=== PATIENT | female | born 1965 | race American Indian/Alaskan Native ===

== ENCOUNTER 2016-08-03 17:54 | Emergency (ER) | payer SELFPAY ==
[2016-08-03 18:40] LABS: Basophils % (Auto) 0.3 % (0.0-1.8); Eosinophils % (Auto) 0.7 % (0.0-4.3); Hematocrit 35.8 % (30.3-42.9); Hemoglobin 11.7 gm/dl (10.1-14.3); Mean Corpuscular HGB Conc 33 % (30-34); Mean Corpuscular Hemoglobin 27 pg (28-32); Mean Corpuscular Volume 83 fl (79-97); Platelet Count 228 K/mm3 (140-440); Red Blood Count 4.33 M/mm3 (3.65-5.03); Red Cell Distribution Width 14.2 % (13.2-15.2); White Blood Count 5.8 K/mm3 (4.5-11.0)
[2016-08-03 18:51] LABS: Alanine Aminotransferase 22 units/L (7-56); Albumin 3.3 g/dL (3.9-5); Albumin/Globulin Ratio 1.1 %; Alkaline Phosphatase 115 units/L (35-129); BUN/Creatinine Ratio 16.25; Blood Urea Nitrogen 13 mg/dL (7-17); Calcium 8.6 mg/dL (8.4-10.2); Carbon Dioxide 27 mmol/L (22-30); Glucose 453 mg/dL (65-100); Lipase 10 units/L (13-60); Total Protein 6.3 g/dL (6.3-8.2)
[2016-08-03 19:02] LABS: Anion Gap 16 mmol/L; Chloride 102.4 mmol/L (98-107); Potassium 4.1 mmol/L (3.6-5.0); Sodium 141 mmol/L (137-145)
[2016-08-03 20:14] LABS: Bilirubin,Urine NEG (Negative); Blood,Urine NEG (Negative); Ketones,Urine NEG (Negative); Leukocyte Esterase,Urine NEG (Negative); Nitrite,Urine NEG (Negative); Protein,Urine <15 mg/dL mg/dL (Negative); RBC,Urine < 1.0 /HPF (0.0-6.0); Urobilinogen,Urine < 2.0 mg/dL (<2.0)
[2016-08-03] MEDS ORDERED: NACL 0.9% 1000 ML 1,000 ML IV ONE (23:07)
[2016-08-03] MEDS ORDERED: NORMODYNE IV ONE (23:08)
--- NOTE | 2016-08-03 23:12 | Emergency Department Report ---
ED Dizziness HPI - General Chief Complaint: High BP Stated Complaint: LUPUS/HYPERTENSION/DIABETES Time Seen by Provider: 08/03/16 23:07 Source: patient Mode of arrival: Ambulatory Limitations: No Limitations - History of Present Illness MD Complaint: dizziness, lightheadedness, near syncope -: Gradual Timing: gradual onset Description: lightheadedness, near-syncope History of Same: No History of Trauma: No Improves With: nothing Worsens With: nothing Associated Symptoms: denies: ataxia, chest pain, confusion, cough, diaphoresis, fever/chills, loss of appetite, malaise, seizure, shortness of breath - Related Data Previous Rx's Medication Instructions Recorded Last Taken Type FLUoxetine HCL [PROzac] 40 mg PO BID #90 capsule 08/04/16 Unknown Rx Insulin Lispro [Humalog] 50 unit SQ AC #5 vial 08/04/16 Unknown Rx Lisinopril [Zestril TAB] 20 mg PO QDAY #90 tablet 08/04/16 Unknown Rx amLODIPine [Norvasc] 10 mg PO DAILY #90 tab 08/04/16 Unknown Rx predniSONE [Deltasone] 10 mg PO QDAY #90 tab 08/04/16 Unknown Rx Allergies Allergy/AdvReac Type Severity Reaction Status Date / Time No Known Allergies Allergy Verified 08/03/16 18:19 ED Review of Systems ROS: Stated complaint: LUPUS/HYPERTENSION/DIABETES Other details as noted in HPI Comment: All other systems reviewed and negative ED Past Medical Hx - Past Medical History Previous Medical History?: Yes Hx Hypertension: Yes Hx Diabetes: Yes Additional medical history: lupus, pancreatitis, hernias - Surgical History Past Surgical History?: Yes Hx Cholecystectomy: Yes Additional Surgical History: left knee - Social History Smoking Status: Never Smoker Substance Use Type: None - Medications Home Medications: Home Medications Medication Instructions Recorded Confirmed Last Taken Type FLUoxetine HCL [PROzac] 40 mg PO BID #90 capsule 08/04/16 Unknown Rx Insulin Lispro [Humalog] 50 unit SQ AC #5 vial 08/04/16 Unknown Rx Lisinopril [Zestril TAB] 20 mg PO QDAY #90 tablet 08/04/16 Unknown Rx amLODIPine [Norvasc] 10 mg PO DAILY #90 tab 08/04/16 Unknown Rx predniSONE [Deltasone] 10 mg PO QDAY #90 tab 08/04/16 Unknown Rx ED Physical Exam - General Limitations: No Limitations General appearance: alert, in no apparent distress - Head Head exam: Present: atraumatic, normocephalic - Eye Eye exam: Present: normal appearance - ENT ENT exam: Present: mucous membranes moist - Neck Neck exam: Present: normal inspection - Respiratory Respiratory exam: Present: normal lung sounds bilaterally. Absent: respiratory distress - Cardiovascular Cardiovascular Exam: Present: regular rate, normal rhythm. Absent: systolic murmur, diastolic murmur, rubs, gallop - GI/Abdominal GI/Abdominal exam: Present: soft, normal bowel sounds - Extremities Exam Extremities exam: Present: normal inspection - Back Exam Back exam: Present: normal inspection - Neurological Exam Neurological exam: Present: alert, oriented X3 - Psychiatric Psychiatric exam: Present: normal affect, normal mood - Skin Skin exam: Present: warm, dry, intact, normal color. Absent: rash ED Course Vital Signs 08/03/16 08/03/16 08/03/16 18:15 23:12 23:34 Temperature 98.5 F Pulse Rate 79 55 L Respiratory 16 15 14 Rate Blood Pressure 189/115 177/89 O2 Sat by Pulse 100 99 100 Oximetry 08/03/16 08/03/16 08/03/16 23:39 23:48 23:51 Temperature Pulse Rate 65 65 Respiratory 16 Rate Blood Pressure 177/89 O2 Sat by Pulse Oximetry ED Medical Decision Making - Lab Data Result diagrams: 08/03/16 18:21 08/03/16 18:21 - Medical Decision Making Patient been doing well in the ER, lab workup and CXR negative, improved after fluids and solumedrol and insulin here in the ER, will refill her DM /HTN meds and also her prednisone, will give follow up with new PMD after she lost her insurance after being terminated Critical care attestation.: If time is entered above; I have spent that time in minutes in the direct care of this critically ill patient, excluding procedure time. ED Disposition Clinical Impression: Lupus Disposition: DC-01 TO HOME OR SELFCARE Is pt being admited?: No Does the pt Need Aspirin: No Condition: Good Instructions: Diabetes Mellitus Type 1 in Adults (ED), Chronic Hypertension (ED ) Prescriptions: amLODIPine [Norvasc] 10 mg PO DAILY #90 tab FLUoxetine HCL [PROzac] 40 mg PO BID #90 capsule Insulin Lispro [Humalog] 50 unit SQ AC #5 vial Lisinopril [Zestril TAB] 20 mg PO QDAY #90 tablet predniSONE [Deltasone] 10 mg PO QDAY #90 tab Time of Disposition: 00:38
[2016-08-03] MEDS ORDERED: ZOFRAN IV ONE (23:17)
[2016-08-03] MEDS ORDERED: DILAUDID IV ONE (23:17)
[2016-08-03] MEDS ORDERED: APRESOLINE ONE (23:47)
[2016-08-03] MEDS ORDERED: APRESOLINE IV ONE (23:49)
[2016-08-04] MEDS ORDERED: BENADRYL IV ONE (01:44)
[2016-08-04 03:59] VITALS: BP 169/74
--- NOTE | 2016-08-04 08:23 | XRay Report ---
CHEST ONE VIEW INDICATION: Chest pain. COMPARISON: 03/24/2007. FINDINGS: Portable, single, frontal chest radiograph demonstrates clear lungs and slight exaggerated cardiomediastinal silhouette, given the inspiration. No pleural effusions or CHF. EKG leads and few other extrinsic artifacts. Mild bony degenerative changes. CONCLUSION: No acute disease in the chest. Thank you for the opportunity to participate in this patient's care.
== END 2016-08-04 02:00 | disposition home or self-care (01) ==
LOC: ED 17:54
DX: M32.9 Systemic lupus erythematosus, unspecified (principal); I10 Essential (primary) hypertension; E11.9 Type 2 diabetes mellitus without complications; Z79.4 Long term (current) use of insulin
CPT/HCPCS: 36415; 71010; 80053; 81001; 82962; 83690; 85025; 96361; 96374; 96375; 99284; J0360; J1170; J1200; J2405; J2930; J7030; J1815

== ENCOUNTER 2017-10-25 11:25 | Emergency (ER) | payer OTHER ==
[2017-10-25 12:13] VITALS: BP 145/95
[2017-10-25 13:02] LABS: HCG Qualitative,Urine Negative (Negative)
[2017-10-25 13:08] LABS: Bacteria,Urine 1+ /HPF (Negative); Bilirubin,Urine NEG (Negative); Blood,Urine SM (Negative); Color,Urine Straw (Yellow); Protein,Urine <15 mg/dL mg/dL (Negative); Urobilinogen,Urine < 2.0 mg/dL (<2.0)
[2017-10-25 13:09] LABS: WBC,Urine > 182.0 /HPF (0.0-6.0)
[2017-10-25] MEDS ORDERED: MACROBID PO ONE (17:28)
[2017-10-25] MEDS ORDERED: DELTASONE PO ONE (17:44)
--- NOTE | 2017-10-25 18:03 | Emergency Department Report ---
ED General Adult HPI - General Chief complaint: Extremity Problem,Nontraumatic Stated complaint: LUPUS Time Seen by Provider: 10/25/17 16:56 Source: patient Mode of arrival: Ambulatory Limitations: No Limitations - History of Present Illness Initial comments: 52-year-old female with a past medical history of diabetes, hypertension, depression, pancreatitis, and lupus with complaints of generalized body aches and a progressively worsening since discontinuing her lupus medication 2 weeks ago. Patient has been out of her prednisone 10 mg daily dose due to lack of insurance. She also hasn't had her Prozac for longer than that. He complains of some mild neck discomfort and vaginal itching. Patient denies fever, nausea , vomiting, or abdominal pain. She has been evaluated to follow up because she lost her job and therefore lost her insurance. She is requesting a refill in her medication. She is able to take her insulin because it is available at [facility] without a prescription. Patient works on her feet all day and states that she is having difficulty tolerating the activity due to progressively worsening pain. Severity scale (0 -10): 6 - Related Data Previous Rx's Medication Instructions Recorded Last Taken Type FLUoxetine HCL [PROzac] 40 mg PO BID #90 capsule 08/04/16 Unknown Rx Insulin Lispro [Humalog] 50 unit SQ AC #5 vial 08/04/16 Unknown Rx Lisinopril [Zestril TAB] 20 mg PO QDAY #90 tablet 08/04/16 Unknown Rx amLODIPine [Norvasc] 10 mg PO DAILY #90 tab 08/04/16 Unknown Rx predniSONE [Deltasone] 10 mg PO QDAY #90 tab 08/04/16 Unknown Rx FLUoxetine HCL [Prozac] 20 mg PO QAM #30 capsule 10/25/17 Unknown Rx Fluconazole [Diflucan TAB] 150 mg PO ONCE #1 tablet 10/25/17 Unknown Rx Nitrofurantoin Monohyd/M-Cryst 100 mg PO BID #14 capsule 10/25/17 Unknown Rx [Macrobid 100 mg Capsule] Prednisone [predniSONE 10 mg 10 mg PO .TAPER #1 tab.ds.pk 10/25/17 Unknown Rx (6-Day Pack, 21 Tabs)] traMADol [Ultram 50 MG tab] 50 mg PO Q6HR PRN #20 tablet 10/25/17 Unknown Rx Allergies Allergy/AdvReac Type Severity Reaction Status Date / Time No Known Allergies Allergy Verified 08/03/16 18:19 ED Review of Systems ROS: Stated complaint: LUPUS Other details as noted in HPI Comment: All other systems reviewed and negative ED Past Medical Hx - Past Medical History Hx Hypertension: Yes Hx Diabetes: Yes Hx Psychiatric Treatment: Yes (depression, anxiety) Additional medical history: lupus, pancreatitis, hernias - Surgical History Hx Cholecystectomy: Yes Additional Surgical History: left knee - Social History Smoking Status: Never Smoker - Medications Home Medications: Home Medications Medication Instructions Recorded Confirmed Last Taken Type FLUoxetine HCL [PROzac] 40 mg PO BID #90 capsule 08/04/16 Unknown Rx Insulin Lispro [Humalog] 50 unit SQ AC #5 vial 08/04/16 Unknown Rx Lisinopril [Zestril TAB] 20 mg PO QDAY #90 tablet 08/04/16 Unknown Rx amLODIPine [Norvasc] 10 mg PO DAILY #90 tab 08/04/16 Unknown Rx predniSONE [Deltasone] 10 mg PO QDAY #90 tab 08/04/16 Unknown Rx FLUoxetine HCL [Prozac] 20 mg PO QAM #30 capsule 10/25/17 Unknown Rx Fluconazole [Diflucan TAB] 150 mg PO ONCE #1 tablet 10/25/17 Unknown Rx Nitrofurantoin Monohyd/M-Cryst 100 mg PO BID #14 capsule 10/25/17 Unknown Rx [Macrobid 100 mg Capsule] Prednisone [predniSONE 10 mg 10 mg PO .TAPER #1 tab.ds.pk 10/25/17 Unknown Rx (6-Day Pack, 21 Tabs)] traMADol [Ultram 50 MG tab] 50 mg PO Q6HR PRN #20 tablet 10/25/17 Unknown Rx ED Physical Exam - General Limitations: No Limitations - Other Other exam information: General: No limitations, patient is alert in no acute distress Head exam: Atraumatic, normocephalic Eyes exam: Normal appearance, pupils equal reactive to light, extraocular movements intact ENT: Moist mucous membrane Neck exam: Normal inspection, full range of motion, no meningismus nontender Respiratory exam: Clear to auscultation bilateral, no wheezes, rales, crackles Cardiovascular: Normal rate and rhythm, normal heart sounds Abdomen: Soft, nondistended, and nontender, with normal bowel sounds, no rebound, or guarding Extremity: Full range of motion normal inspection no deformity Back: Normal Inspection, full range of motion, no tenderness Neurologic: Alert, oriented x3, cranial nerves intact, no motor or sensory deficit Psychiatric: normal affect, normal mood Skin: Warm, dry, intact ED Course Vital Signs 10/25/17 12:02 Temperature 99 F Pulse Rate 95 H Respiratory 16 Rate Blood Pressure 145/95 Blood Pressure 145/95 [Right] O2 Sat by Pulse 95 Oximetry ED Medical Decision Making - Medical Decision Making Medication refill I am hesitant to prescribe a standing dose of 10 mg of prednisone since prednisone has several side effects that will require ongoing monitoring by physician Patient will be placed on a prednisone taper instead Prozac will be reinitiated starting dose that she has been out for quite some time. Explained the risk of increased suicidal ideation we be starting and abruptly stopping his medication UTI Macrobid provided in the ED No fever reported. Vital signs aren't suggestive of sepsis Positive yeast buds therefore patient will be treated with Diflucan - Differential Diagnosis UTI, lupus flare, medication noncompliance Critical Care Time: No Critical care attestation.: If time is entered above; I have spent that time in minutes in the direct care of this critically ill patient, excluding procedure time. ED Disposition Clinical Impression: Noncompliance with medication regimen, Medicine refill, UTI (urinary tract infection), Lupus, Chronic pain, Yeast vaginitis Disposition: TO HOME OR SELFCARE Is pt being admited?: No Does the pt Need Aspirin: No Condition: Stable Instructions: Urinary Tract Infection in Women (ED), Chronic Pain (ED), Depression (ED), Vulvovaginal Candidiasis (ED) Additional Instructions: Take the medication as prescribed. Follow up with your doctor or doctor provided. Return if symptoms worsen as indicated by your discharge instructions Prescriptions: Fluconazole [Diflucan TAB] 150 mg PO ONCE #1 tablet FLUoxetine HCL [Prozac] 20 mg PO QAM #30 capsule Nitrofurantoin Monohyd/M-Cryst [Macrobid 100 mg Capsule] 100 mg PO BID #14 capsule Prednisone [predniSONE 10 mg (6-Day Pack, 21 Tabs)] 10 mg PO .TAPER #1 tab.ds.pk traMADol [Ultram 50 MG tab] 50 mg PO Q6HR PRN #20 tablet PRN Reason: Pain Referrals: PRIMARY CARE, [Primary Care Provider] - 3-5 Days [facility] [Provider Group] - 3-5 Days NICK JACOBSEN MD [Staff Physician] - 3-5 Days Time of Disposition: 18:08
== END 2017-10-25 18:27 | disposition home or self-care (01) ==
LOC: ED 11:25
DX: N39.0 Urinary tract infection, site not specified (principal); G89.29 Other chronic pain; I10 Essential (primary) hypertension; E11.9 Type 2 diabetes mellitus without complications; F32.9 Major depressive disorder, single episode, unspecified; F41.9 Anxiety disorder, unspecified; N76.0 Acute vaginitis; B97.89 Other viral agents as the cause of diseases classified elsewhere; Z76.0 Encounter for issue of repeat prescription; Z79.4 Long term (current) use of insulin; Z79.899 Other long term (current) drug therapy; Z90.49 Acquired absence of other specified parts of digestive tract
CPT/HCPCS: 81001; 81025; 99283; J7512